=== PATIENT | female | born 1975 | race American Indian/Alaskan Native ===

== ENCOUNTER 2021-12-20 10:19 | Emergency (ER) | payer OTHER ==
--- NOTE | 2021-12-20 11:52 | Emergency Department Report ---
- General Chief complaint: Urogenital-Female Stated complaint: ABCESS/VAGINA Time Seen by Provider: 12/20/21 11:20 Source: patient Mode of arrival: Ambulatory Limitations: No Limitations - History of Present Illness Initial comments: 46-year-old black female presents to the emergency department for evaluation of abscess to perineal area. She states that she noticed it 3 days ago and it has been getting larger and more painful since then. She denies fever, abdominal pain, dysuria, and vaginal discharge. She states that she has not had any drainage from area. MD complaint: abscess/boil -: Gradual, days(s) (3) Tetanus Up to Date: yes Location: genitals Severity scale (0 -10): 4 Quality: aching Consistency: intermittent Worsens with: movement Associated symptoms: denies other symptoms Treatments Prior to Arrival: none - Related Data Previous Rx's Medication Instructions Recorded Last Taken Type Sulfamethoxazole/Trimethoprim 1 each PO BID #14 tab 12/20/21 Unknown Rx [Bactrim DS TAB] Allergies Allergy/AdvReac Type Severity Reaction Status Date / Time No Known Allergies Allergy Unverified 12/20/21 10:44 Abscess Boil HPI - HPI Chief Complaint: Urogenital-Female Stated Complaint: ABCESS/VAGINA Time Seen by Provider: 12/20/21 11:20 Home Medications: Previous Rx's Medication Instructions Recorded Last Taken Type Sulfamethoxazole/Trimethoprim 1 each PO BID #14 tab 12/20/21 Unknown Rx [Bactrim DS TAB] Allergies/Adverse Reactions: Allergies Allergy/AdvReac Type Severity Reaction Status Date / Time No Known Allergies Allergy Unverified 12/20/21 10:44 ED Review of Systems ROS: Stated complaint: ABCESS/VAGINA Other details as noted in HPI Comment: All other systems reviewed and negative Constitutional: denies: chills, fever Respiratory: denies: shortness of breath Cardiovascular: denies: chest pain, palpitations Gastrointestinal: denies: abdominal pain, nausea, vomiting, diarrhea, hematemesis, melena, hematochezia Genitourinary: denies: urgency, dysuria, frequency, hematuria, discharge Skin: denies: rash Neurological: denies: headache, weakness ED Past Medical Hx - Past Medical History Previous Medical History?: No - Surgical History Past Surgical History?: Yes Additional Surgical History: right knee surgery - Medications Home Medications: Home Medications Medication Instructions Recorded Confirmed Last Taken Type Sulfamethoxazole/Trimethoprim 1 each PO BID #14 tab 12/20/21 Unknown Rx [Bactrim DS TAB] ED Physical Exam - General Limitations: No Limitations General appearance: alert, in no apparent distress - Head Head exam: Present: atraumatic, normocephalic - Eye Eye exam: Present: normal appearance. Absent: conjunctival injection - Neck Neck exam: Present: normal inspection. Absent: tenderness, lymphadenopathy - Respiratory Respiratory exam: Present: normal lung sounds bilaterally. Absent: respiratory distress, wheezes, rales, rhonchi, stridor, chest wall tenderness - Cardiovascular Cardiovascular Exam: Present: regular rate, normal heart sounds - GI/Abdominal GI/Abdominal exam: Present: soft, normal bowel sounds. Absent: distended, ten derness, guarding, rebound, rigid - External exam: Absent: normal external exam (Noted to have abscessed area to the bottom of right labia majora that is 4 cm in diameter with small amount of purulent drainage expressed from it.) - Extremities Exam Extremities exam: Present: normal inspection, normal capillary refill. Absent: pedal edema, joint swelling, calf tenderness - Back Exam Back exam: Present: normal inspection. Absent: CVA tenderness (R), CVA tenderness (L) - Neurological Exam Neurological exam: Present: alert, oriented X3, normal gait - Psychiatric Psychiatric exam: Present: normal affect, normal mood - Skin Skin exam: Present: warm, dry, intact, normal color ED Course Vital Signs 12/20/21 12/20/21 10:41 12:04 Temperature 98.6 F Pulse Rate 86 80 Respiratory 18 16 Rate Blood Pressure 168/96 150/90 [Right] O2 Sat by Pulse 98 98 Oximetry - I & D Perineum Type of Procedure: Simple Site: Lower right labia majora Blade Size: Area already open I & D Procedure: betadine prep Progress: Area noted to be already open with small amount of drainage noted. Area cleaned with Betadine then expressed for small amount of purulent drainage. Patient tolerated well. ED Medical Decision Making - Medical Decision Making 46-year-old black female presents to the emergency department for evaluation of abscess to perineal area. She states that she noticed it 3 days ago and it has been getting larger and more painful since then. She denies fever, abdominal pain, dysuria, and vaginal discharge. She states that she has not had any drainage from area. Exam consistent with abscess to right lower labia majora. Area was expressed for small amount of purulent drainage and patient will be discharged home on Bactrim for 7 days. She is advised to take medications as prescribed and follow-up with her primary care provider if no improvement or worsening symptoms. She verbalized understanding of and agreement with plan of care. Critical care attestation.: If time is entered above; I have spent that time in minutes in the direct care of this critically ill patient, excluding procedure time. ED Disposition Clinical Impression: Perineal abscess Disposition: 01 HOME / SELF CARE / HOMELESS Is pt being admited?: No Does the pt Need Aspirin: No Condition: Stable Instructions: Skin Abscess, [id number] Additional Instructions: Take medications as prescribed and follow up with pcp if no improvement or worsening symptoms. Return to Ed as needed. Prescriptions: Sulfamethoxazole/Trimethoprim [Bactrim DS TAB] 1 each PO BID #14 tab Referrals: JACKIE RÍOS MD [Referring] - 3-5 Days Forms: Work/School Release Form(ED) Time of Disposition: 11:52
[2021-12-20 12:05] VITALS: BP 150/90
== END 2021-12-20 12:28 | disposition home or self-care (01) ==
LOC: ED 10:19
DX: L02.215 Cutaneous abscess of perineum (principal)
CPT/HCPCS: 99283